=== PATIENT | female | born 1985 | race Caucasian/White ===

== ENCOUNTER 2019-03-30 03:11 | Outpatient (CLI) | payer OTHER ==
[~2019-03-30] VITALS: Ht 160 cm; Wt 78.2 kg
[2019-03-30 03:15] VITALS: BP 123/82
== END 2019-03-30 04:55 | disposition home or self-care (01) ==
LOC: LDOP 03:11
PROVIDERS: ATTEND Obstetrics & Gynecology
DX: O26.893 Other specified pregnancy related conditions, third trimester (principal); R10.9 Unspecified abdominal pain; Z3A.39 39 weeks gestation of pregnancy
CPT/HCPCS: 59025; 89060; 99201; J2175; J2550; G0463; Q0114

== ENCOUNTER 2019-03-30 09:26 | Inpatient (IN) | payer OTHER ==
[~2019-03-30] VITALS: Ht 165.1 cm; Wt 78.1 kg
[2019-03-31 12:00] VITALS: BP 108/71
== END 2019-03-31 18:45 | disposition home or self-care (01) | DRG 807 ==
LOC: LDOP 09:26 → LDIP 09:45 → 2NW 21:34
PROVIDERS: ADMIT Obstetrics & Gynecology; ATTEND Obstetrics & Gynecology
PROC: 10E0XZZ Delivery of Products of Conception, External Approach (ICD-10-PCS; principal; 2019-03-30)
PROC: 0KQM0ZZ Repair Perineum Muscle, Open Approach (ICD-10-PCS; 2019-03-30)
PROC: 10907ZC Drainage of Amniotic Fluid, Therapeutic from Products of Conception, Via Natural or Artificial Opening (ICD-10-PCS; 2019-03-30)
PROC: 3E0R3BZ Introduction of Anesthetic Agent into Spinal Canal, Percutaneous Approach (ICD-10-PCS; 2019-03-30)
PROC: 00HU33Z Insertion of Infusion Device into Spinal Canal, Percutaneous Approach (ICD-10-PCS; 2019-03-30)
DX: O76 Abnormality in fetal heart rate and rhythm complicating labor and delivery (principal); Z37.0 Single live birth; O99.824 Streptococcus B carrier state complicating childbirth; Z3A.39 39 weeks gestation of pregnancy; O77.0 Labor and delivery complicated by meconium in amniotic fluid; Z67.90 Unspecified blood type, Rh positive; O75.89 Other specified complications of labor and delivery; O71.82 Other specified trauma to perineum and vulva; O70.1 Second degree perineal laceration during delivery; O69.81X0 Labor and delivery complicated by cord around neck, without compression, not applicable or unspecified; Z80.0 Family history of malignant neoplasm of digestive organs; Z80.1 Family history of malignant neoplasm of trachea, bronchus and lung; Z80.3 Family history of malignant neoplasm of breast
CPT/HCPCS: 36415; 85025; 86850; 86900; G0378; J2540; J2590; J3010; J7120